=== PATIENT | male | born 1990 | race Caucasian/White ===

== ENCOUNTER 2017-01-27 21:36 | Emergency (ER) | payer OTHER ==
[~2017-01-27] VITALS: Ht 182.9 cm; Wt 99.8 kg
[2017-01-27] MEDS ORDERED: FAMOTIDINE 20 MG/2 ML VIAL ONE (21:48)
[2017-01-27] MEDS ORDERED: methylPREDNISolone SOD SUCC PF 125 MG/2 ML VIAL. ONE (21:48)
[2017-01-27] MEDS ORDERED: diphenhydrAMINE 50 MG/ML VIAL ONE (21:48)
[2017-01-27] MEDS ORDERED: EPIN0.3A8 IJ (21:56)
--- NOTE | 2017-01-27 21:57 | PHYS DOC ---
Past Medical History Past Medical History: No Pertinent History Alcohol Use: None Drug Use: None Adult General Chief Complaint Chief Complaint: ALLERGIC REACTION HPI HPI 26-year-old male presenting to the emergency department today after getting allergy shots and then developing a rash with difficulty breathing. The patient cracked open 2 of his epinephrine medications and gave himself both of them. He then presents the emergency department today for further evaluation. He is feeling better from breathing perspective but his rash remains. Location generalized. Duration intermittent. Alleviated by epinephrine. Review of systems is negative for chest pain shortness of breath fevers chills nausea vomiting. All other review of systems is negative unless otherwise noted in history of present illness. ED course: 26-year-old male presenting to the emergency department today with rash and difficulty breathing. The patient received epinephrine prior to arrival.two full dose intramuscular epinephrine shots given by himself. 0.6mg in total. On arrival the patient was breathing without difficulty. No wheezing on examination. He denied GI symptoms. He was given Benadryl, Solu-Medrol and famotidine in the ER and observed. On reexamination he was feeling better and his rash was dissipating. The patient was then discharged home in stable condition to follow up with their primary care physician over the next 2-3 days. They were to return if their symptoms worsened or if they were concerned for any reason. [id number] discharge instructions and return precautions were given. Patient's questions were answered to their satisfaction. Patient is comfortable plan. Review of Systems Review of Systems SEE ABOVE. Current Medications Current Medications Current Medications Medications (Trade) Dose Ordered Sig/Jamshid Start Time Stop Time Status Last Admin Dose Admin Diphenhydramine HCl (Benadryl) 50 mg 1X ONCE 01/27/17 22:00 01/27/17 22:01 DC 01/27/17 21:52 50 MG Famotidine (Pepcid) 20 mg 1X ONCE 01/27/17 22:00 01/27/17 22:01 DC 01/27/17 21:52 20 MG Methylprednisolone Sodium Succinate (SOLU-Medrol 125MG VIAL) 125 mg 1X ONCE 01/27/17 22:00 01/27/17 22:01 DC 01/27/17 21:53 125 MG Allergies Allergies Allergies Coded Allergies Type Severity Reaction Last Updated Verified No Known Drug Allergies 01/27/17 No Physical Exam Physical Exam SEE ABOVE Constitutional: Well developed, well nourished, no acute distress, non-toxic appearance. [] Resting comfortably in the examination room. HENT: Normocephalic, atraumatic, bilateral external ears normal, oropharynx moist, no oral exudates, nose normal. [] Eyes: PERRLA, EOMI, conjunctiva normal, no discharge. [] Neck: Normal range of motion, no tenderness, supple, no stridor. [] Cardiovascular:Heart rate regular rhythm, no murmur [] Lungs & Thorax: Bilateral breath sounds clear to auscultation [] no wheezing on examination. Abdomen: Bowel sounds normal, soft, no tenderness, no masses, no pulsatile masses. [] Skin: Warm, dry, patient has a uticarial crash generally throughout his skin. Back: No tenderness, no CVA tenderness. [] Extremities: No tenderness, no cyanosis, no clubbing, ROM intact, no edema. [] Neurologic: Alert and oriented X 3, normal motor function, normal sensory function, no focal deficits noted. [] Psychologic: Affect normal, judgement normal, mood normal. [] Current Patient Data Vital Signs Vital Signs Date Time Temp Pulse Resp B/P (MAP) Pulse Ox O2 Delivery O2 Flow Rate FiO2 01/27/17 21:40 97.9 107 20 141/82 (101) 98 Room Air 97.9 EKG EKG [] Radiology/Procedures Radiology/Procedures [] Course & Med Decision Making Course & Med Decision Making Pertinent Labs and Imaging studies reviewed. (See chart for details) [] Dragon Disclaimer Dragon Disclaimer This electronic medical record was generated, in whole or in part, using a voice recognition dictation system. Departure Departure Impression: Primary Impression: Anaphylaxis Disposition: 01 HOME, SELF-CARE Condition: STABLE Referrals: CHRISTIANO HAUSER MD Patient Instructions: Anaphylactic Reaction Additional Instructions: Thank you for allowing us to participate in your care today. Followup with your primary care physician in 3 days if your symptoms do not improve. Call your Primary Doctor tomorrow and inform them of your visit today. If you do not have a primary care provider you can ask for a list of our primary care providers. Return to the emergency department you have any new or concerning findings. This should be evaluated by the primary care physician and any necessary consulting services for continued management within a few days after discharge. Return to emergency room if you have any new or concerning symptoms including but not limited to fever, chills, nausea, vomiting, intractable pain, any new rashes, chest pain, shortness of air, uncontrolled bleeding, difficulty breathing, and/or vision loss. Scripts Epinephrine (EPINEPHRINE) 0.3 Mg/0.3 Ml Auto.injct 0.3 MG IJ UD for ANAPHYLAXIS, #2 0 Refills Prov: CATRACHITA HAMPTON MD 01/27/17 CATRACHITA HAMPTON MD Jan 27, 2017 21:57
[2017-01-27] MEDS ORDERED: diphenhydrAMINE 50 MG/ML VIAL IV ONE (22:00)
[2017-01-27] MEDS ORDERED: methylPREDNISolone SOD SUCC PF 125 MG/2 ML VIAL. IV ONE (22:00)
[2017-01-27] MEDS ORDERED: FAMOTIDINE 20 MG/2 ML VIAL IVP ONE (22:00)
[2017-01-27 22:48] VITALS: BP 124/78
== END 2017-01-27 22:52 | disposition home or self-care (01) ==
LOC: EDBD 21:36 → ER 21:36
DX: T78.2XXA Anaphylactic shock, unspecified, initial encounter (principal)
CPT/HCPCS: 96374; 96375; 99284; J1200; J2930; S0028